=== PATIENT | male | born 1980 | race Caucasian/White ===

== ENCOUNTER 2017-10-11 20:11 | Emergency (ER) | payer OTHER ==
[~2017-10-11] VITALS: Ht 180.3 cm; Wt 90.7 kg
[2017-10-11 20:21] VITALS: BP_SYST 150
[2017-10-11] MEDS ORDERED: KETOROLAC TROMETHAMINE 30 MG VIAL IVP ONE (20:45)
[2017-10-11] MEDS ORDERED: PANTOPRAZOLE SODIUM 40 MG/VIAL (PROTONIX) IVP ONE (20:45)
[2017-10-11 21:04] LABS: BASOPHILS % (AUTO) 0.5 % (0.0-2.0); EOSINOPHILS # (AUTO) 0.2 K/uL (0.0-0.4); EOSINOPHILS % (AUTO) 1.9 % (0.0-4.0); HEMATOCRIT 42.4 % (36-54); LYMPHOCYTES # (AUTO) 4.1 K/uL (1.0-5.5); LYMPHOCYTES % (AUTO) 42.3 % (20.5-51.5); MEAN CORPUSCULAR HEMOGLOBIN 28 pg (27-31); MEAN CORPUSCULAR HGB CONC 33 % (32-36); MEAN CORPUSCULAR VOLUME 84 fL (79.0-98.0); MONOCYTES # (AUTO) 0.6 K/uL (0.0-1.0); MONOCYTES % (AUTO) 6.6 % (1.7-9.3); NEUTROPHILS # (AUTO) 4.9 K/uL (1.8-7.7); NEUTROPHILS % (AUTO) 48.7 % (40.0-70.0); PLATELET COUNT (AUTO) 300 K/uL (130-430); RED BLOOD CELL COUNT(AUTO) 5.06 MIL/uL (4.2-6.2); RED CELL DISTRIBUTION WIDTH 12.2 % (9.0-15.0); WHITE BLOOD COUNT (AUTO) 9.8 K/uL (4.8-10.8)
[2017-10-11 21:31] LABS: CALCIUM 8.4 mg/dL (8.4-11.0); CREATININE 1.29 mg/dL (0.55-1.30); POTASSIUM 3.6 mmol/L (3.5-5.1)
[2017-10-11 21:36] LABS: ALBUMIN 3.7 g/dL (3.4-4.8); TOTAL BILIRUBIN 0.4 mg/dL (0.0-1.0)
[2017-10-11 23:58] VITALS: BP_SYST 142
== END 2017-10-11 23:58 | disposition home or self-care (01) ==
LOC: SED 20:11
DX: R07.89 Other chest pain (principal); I10 Essential (primary) hypertension; Z86.79 Personal history of other diseases of the circulatory system
CPT/HCPCS: 36415; 71045; 80053; 84484; 85025; 85379; 93005; 96374; 96375; 99285; C9113; J1885

== ENCOUNTER 2019-08-22 17:39 | Emergency (ER) | payer BC, OTHER ==
[~2019-08-22] VITALS: Ht 180.3 cm; Wt 92.5 kg
[2019-08-22 17:40] VITALS: BP_SYST 130
--- NOTE | 2019-08-22 17:40 | NUR ---
BROUGHT BACK TO BED #1 AND TRIAGED. REPORT GIVEN TO NOELLE
--- NOTE | 2019-08-22 17:50 | NUR ---
Patient presented to ER C/O Head ache. Patient A&Ox4, afebrile, skin pink and warm, bilat periorbital purple discoloration, forhead swelling, pain 11/25, denies N/V/D. Patient states he had from from golf car Tuesday, deyvi KO.
--- NOTE | 2019-08-22 17:50 | NUR ---
Note lauraone in ED - 08/22/19 at 1940 by ADALGISAEDTEthan Patient presented to ER C/O decreased appetite. Patient ambulatory to ER, A&Ox4, afebrile, skin pink & warm, pain 0/10, denies N/V/D. Patient states he ahs dereased appetite & anxiety.
[2019-08-22] MEDS ORDERED: KETOROLAC TROMETHAMINE 60 MG/2 ML VIAL IM ONE (18:15)
--- NOTE | 2019-08-22 18:15 | NUR ---
ER Dr. Calero at bedside examining patient.
--- NOTE | 2019-08-22 18:15 | NUR ---
Note undone in EDM - 08/22/19 at 1946 by ADALGISAEDDOC Patient given written and verbal discharge instructions and verbalizes understanding. ER discussed with patient the results and treatment provided. Patient in stable condition. ID arm band removed. Rx of juan a & Narendra given. Patient educated on pain management and to follow up with PMD. Pain Scale 3/10. Opportunity for questions provided and answered. Medication side effect fact sheet provided.
[2019-08-22 18:53] VITALS: BP_SYST 128
--- NOTE | 2019-08-22 18:53 | NUR ---
Patient given written and verbal discharge instructions and verbalizes understanding. ER MD discussed with patient the results and treatment provided. Patient in stable condition. ID arm band removed. Rx of NORCO & MOTRIN given. Patient educated on pain management and to follow up with PMD. Pain Scale 3/10. Opportunity for questions provided and answered. Medication side effect fact sheet provided.
== END 2019-08-22 18:53 | disposition home or self-care (01) ==
LOC: SED 17:39
DX: S13.4XXA Sprain of ligaments of cervical spine, initial encounter (principal); S00.83XA Contusion of other part of head, initial encounter; I10 Essential (primary) hypertension; W18.40XA Slipping, tripping and stumbling without falling, unspecified, initial encounter; Y93.53 Activity, golf; Y92.89 Other specified places as the place of occurrence of the external cause; Y99.8 Other external cause status
CPT/HCPCS: 96372; 99283; J1885